=== PATIENT | female | born 1955 | race Hispanic/Latino ===

== ENCOUNTER → 2018-02-26 | Outpatient (CLI) | payer OTHER ==
[~2018-02-26] MED LIST: CIPR-245 PO; LEVO25TA9 PO; METR500T PO
== END | disposition home or self-care (01) ==
LOC: OIH 14:21
PROVIDERS: ATTEND Internal Medicine
DX: M47.896 Other spondylosis, lumbar region (principal); M25.562 Pain in left knee; R20.0 Anesthesia of skin
CPT/HCPCS: 72100; 73560

== ENCOUNTER → 2019-03-11 | Outpatient (CLI) | payer MEDICARE | END | disposition home or self-care (01) | LOC: RAH 08:44 | PROVIDERS: ATTEND Internal Medicine Gastroenterology | DX: K21.9 Gastro-esophageal reflux disease without esophagitis (principal) | CPT/HCPCS: 74240 ==

== ENCOUNTER 2024-09-03 17:03 | Emergency (ER) | payer MEDICARE, OTHER ==
[~2024-09-03] VITALS: Ht 160 cm; Wt 69.9 kg
[~2024-09-03 17:03] MED LIST changes: -CIPR-245 PO; +CIPR500T10 PO
--- NOTE | 2024-09-03 17:12 | EKG ---
[facility] Test Date: 2024-09-03 Test Time: 17:09:49 Pat Name: KASH TAYLOR Department: ED Room: Gender: F Application Support Consultant: [id number] : 1955 Requested By: IKER WILEY Order Number: [id number] Reading MD: Constantin Shepherd Measurements Intervals [place] Rate: 81 P: 39 WY: 178 QRS: 10 QRSD: 80 T: 36 QT: 389 QTc: 451 Interpretive Statements Sinus rhythm Compared to ECG 06/24/2017 22:27:54 Left ventricular hypertrophy no longer present Electronically Signed On 09-04-2024 18:39:26 REGISTERED NURSE SURGICAL SERVICES by Constantin Shepherd Please click the below link to view image of tracing.
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
[2024-09-03 18:11] LABS: BASOPHILS # (AUTO) 0.02 K/uL (0.00-0.20); BASOPHILS % (AUTO) 0.3 % (0.0-5.0); EOSINOPHILS % (AUTO) 1.7 % (0.0-8.0); HEMATOCRIT 38.2 % (36-48); IMMATURE GRANULOCYTE ABSOLUTE 0.02 K/uL (0-1); LYMPHOCYTES # (AUTO) 1.7 K/uL (1.0-4.8); LYMPHOCYTES % (AUTO) 28.8 % (21.0-51.0); MEAN CORPUSCULAR HEMOGLOBIN 31.1 pg (27.0-33.0); MEAN CORPUSCULAR HGB CONC 34.6 g/dL (32.0-36.0); MEAN CORPUSCULAR VOLUME 90.1 fL (79-99); MONOCYTES # (AUTO) 0.4 K/uL (0.1-1.0); NEUTROPHILS # (AUTO) 3.6 K/uL (1.8-7.7); NEUTROPHILS % (AUTO) 61.9 % (40.0-77.0); PLATELET COUNT (AUTO) 196 K/uL (130-400); RED BLOOD CELL COUNT(AUTO) 4.24 MIL/uL (4.00-5.50); RED CELL DISTRIBUTION WIDTH 11.9 % (11.0-15.5); WHITE BLOOD COUNT (AUTO) 5.8 K/uL (4.8-10.8)
[2024-09-03 18:22] LABS: CREATININE 0.7 mg/dL (0.5-1.0)
[2024-09-03] MEDS ORDERED: IOHEXOL-350 75 ML VIAL IV ONE (19:45)
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
[2024-09-03] MEDS: morPHINE 2 MG SYG IVP ONE (20:18)
[2024-09-03] MEDS: ondanSETRON 4MG INJ IVP ONE (20:18)
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
[2024-09-03 21:30] VITALS: BP 168/88; PULSE 82; RESP 16; TEMP 98.1; O2SAT 99
== END 2024-09-03 21:52 | disposition home or self-care (01) ==
LOC: EDH 17:03
DX: S30.1XXA Contusion of abdominal wall, initial encounter (principal); I10 Essential (primary) hypertension; Z88.0 Allergy status to penicillin; V89.2XXA Person injured in unspecified motor-vehicle accident, traffic, initial encounter; Y93.89 Activity, other specified; Y92.89 Other specified places as the place of occurrence of the external cause; Y99.8 Other external cause status
CPT/HCPCS: 99285; 74177; 96374; 96375; 80048; 83690; 85025; 36415; 93005; J2270; J2405; Q9967